=== PATIENT | male | born 1975 | race Caucasian/White ===

== ENCOUNTER 2017-01-08 09:23 | Day surgery (SDC) | payer OTHER ==
[~2017-01-08] VITALS: Ht 180.3 cm; Wt 67.2 kg
[~2017-01-08 09:23] MED LIST: AMOXICILLIN875 MG PO; CLINDAMYCIN HC300 MG PO; GABAPENTIN100 MG PO; METHADONE10 MG PO; MORPHINE SULFAT15 M1 PO; MOTRIN800 MG PO; NAPROSYN500 MG PO; NEURONTIN300 MG PO; OXYCODONE-ACET1 EACH PO; XARTEMIS XR 7.1 EACH PO; ZANAFLEX2 MG PO
== END 2017-01-08 11:19 | disposition home or self-care (01) ==
LOC: PAIN 09:23 → SDC 09:45 → PAIN 11:19
PROC: 01513ZZ Destruction of Cervical Nerve, Percutaneous Approach (ICD-10-PCS; principal; 2017-01-08)
DX: M47.892 Other spondylosis, cervical region (principal); M54.5 Low back pain; F41.1 Generalized anxiety disorder; E78.5 Hyperlipidemia, unspecified; R73.09 Other abnormal glucose; M79.1 Myalgia
CPT/HCPCS: J1030; J2250; J3010; S0020

== ENCOUNTER 2017-01-15 12:30 | Day surgery (SDC) | payer OTHER ==
[~2017-01-15] VITALS: Ht 180.3 cm; Wt 68.0 kg
== END 2017-01-15 14:31 | disposition home or self-care (01) ==
LOC: PAIN 12:30 → SDC 13:00 → PAIN 14:31
PROC: 01513ZZ Destruction of Cervical Nerve, Percutaneous Approach (ICD-10-PCS; principal; 2017-01-15)
DX: M47.892 Other spondylosis, cervical region (principal); G89.29 Other chronic pain; M54.2 Cervicalgia; F41.1 Generalized anxiety disorder; M79.1 Myalgia; M54.5 Low back pain; R73.09 Other abnormal glucose
CPT/HCPCS: J1030; J2250; J3010; S0020

== ENCOUNTER 2017-03-04 10:18 | Emergency (ER) | payer OTHER ==
[~2017-03-04] VITALS: Ht 170.2 cm; Wt 69.2 kg
[2017-03-04] MEDS ORDERED: CLEOCIN300 MG PO (12:31)
[2017-03-04 13:01] VITALS: BP 143/97
== END 2017-03-04 13:02 | disposition home or self-care (01) ==
LOC: EME 10:18
PROC: 0H9DXZZ Drainage of Right Lower Arm Skin, External Approach (ICD-10-PCS; principal; 2017-03-04)
DX: L02.413 Cutaneous abscess of right upper limb (principal); R00.0 Tachycardia, unspecified; G89.29 Other chronic pain; Z79.891 Long term (current) use of opiate analgesic; F17.200 Nicotine dependence, unspecified, uncomplicated
CPT/HCPCS: 73090; 87070; 87075; 87077; 87147; 87186; 87205; 99281; 99284; J0696